=== PATIENT | female | born 1985 | race Two or more races ===

== ENCOUNTER 2017-03-31 09:46 | Emergency (ER) | payer SELFPAY | END 2017-03-31 10:32 | disposition home or self-care (01) | LOC: ER 09:46 | DX: R51 Headache (principal) | CPT/HCPCS: 99283 ==

== ENCOUNTER 2017-04-01 19:39 | Emergency (ER) | payer SELFPAY ==
[2017-04-01] MEDS: KETOROLAC 60 MG/2 ML INJ. IM ×2 (20:42)
== END 2017-04-01 21:04 | disposition home or self-care (01) ==
LOC: ER 19:39
DX: K08.89 Other specified disorders of teeth and supporting structures (principal); R22.0 Localized swelling, mass and lump, head
CPT/HCPCS: 96372; 99283; J1885